=== PATIENT | female | born 1995 | race Caucasian/White ===

== ENCOUNTER 2025-08-28 19:48 | Emergency (ER) | payer OTHER ==
[~2025-08-28] VITALS: Ht 167.6 cm; Wt 54.4 kg
[2025-08-28] MEDS ORDERED: FLUT16SP16 BNOSTRILS (20:43)
[2025-08-28 22:18] VITALS: BP 100/70; TEMP 98; O2SAT 99
== END 2025-08-28 22:19 | disposition home or self-care (01) ==
LOC: ER 20:00
DX: J34.89 Other specified disorders of nose and nasal sinuses (principal)